=== PATIENT | female | born 1980 | race Caucasian/White ===

== ENCOUNTER 2021-05-22 08:47 | Outpatient (CLI) | payer OTHER | END 2021-05-22 08:48 | disposition home or self-care (01) | LOC: CSHULT 08:47 | PROVIDERS: ATTEND Internal Medicine Gastroenterology | DX: R10.9 Unspecified abdominal pain (principal) | CPT/HCPCS: 76700 ==

== ENCOUNTER 2021-07-09 12:20 | Outpatient (CLI) | payer OTHER ==
[2021-07-09 22:28] LABS: SARS-CoV-2 PCR by NAA Not Detected (NotDetected)
== END 2021-07-09 12:21 | disposition home or self-care (01) ==
LOC: CSHLAB 12:20
PROVIDERS: ATTEND Student in an Organized Health Care Education/Training Program
DX: Z20.822 Contact with and (suspected) exposure to COVID-19 (principal)
CPT/HCPCS: U0003; U0005

== ENCOUNTER 2021-07-12 14:03 | Outpatient (CLI) | payer OTHER | END 2021-07-12 14:04 | disposition home or self-care (01) | LOC: CSHCP 14:03 | PROVIDERS: ATTEND Student in an Organized Health Care Education/Training Program | DX: Z00.8 Encounter for other general examination (principal) | CPT/HCPCS: 94060; 94726; 94729; 94760 ==